=== PATIENT | male | born 1945 | race Native Hawaiian/Other Pacific Islander ===

== ENCOUNTER 2019-11-06 09:32 | Outpatient (CLI) | payer OTHER | END 2019-11-06 20:07 | disposition home or self-care (01) | LOC: MRI 09:32 | DX: M48.062 Spinal stenosis, lumbar region with neurogenic claudication (principal) ==

== ENCOUNTER 2022-08-18 09:16 | Outpatient (CLI) | payer OTHER ==
[2022-08-18 11:25] LABS: POTASSIUM 4.6 mmol/L (3.6-5.2)
== END 2022-08-18 23:22 | disposition home or self-care (01) ==
LOC: LAB 09:16
PROVIDERS: ATTEND Internal Medicine Cardiovascular Disease
DX: I10 Essential (primary) hypertension (principal); E78.49 Other hyperlipidemia; I48.91 Unspecified atrial fibrillation; E13.9 Other specified diabetes mellitus without complications
CPT/HCPCS: 80048; 80061; 83036; 83880

== ENCOUNTER 2023-07-07 10:59 | Outpatient (CLI) | payer OTHER | END 2023-07-07 20:17 | disposition home or self-care (01) | LOC: LABW 10:59 | PROVIDERS: ATTEND Podiatrist | DX: E11.41 Type 2 diabetes mellitus with diabetic mononeuropathy (principal) | CPT/HCPCS: 36415; 83036; 84450; 84460 ==